=== PATIENT | female | born 1975 | race Caucasian/White ===

== ENCOUNTER 2021-11-27 13:22 | Emergency (ER) | payer BC ==
[~2021-11-27] VITALS: Ht 167.6 cm; Wt 65.3 kg
[2021-11-27] MEDS ORDERED: ALBENDAZOLE200 MG PO (13:42)
== END 2021-11-27 13:40 | disposition home or self-care (01) ==
LOC: ER 13:22
DX: B71.9 Cestode infection, unspecified (principal); Z79.899 Other long term (current) drug therapy
CPT/HCPCS: 99282